=== PATIENT | female | born 1990 | race Caucasian/White ===

== ENCOUNTER 2021-06-05 00:07 | Emergency (ER) | payer OTHER ==
[2021-06-05 00:55] VITALS: BP 138/79
[2021-06-05] MEDS ORDERED: hydrOXYzine PAMOATE 25 MG CAPSULE PO STA (01:27)
--- NOTE | 2021-06-05 01:33 | ED Physician Documentation ---
History of Present Illness - Stated complaint Stated Complaint: MHE, PANICK ATTACK - Chief complaint Chief Complaint: MHE - History obtained from History obtained from: Patient, Family (mother) - Additonal information Additional information: 31yF with pmh anxiety, adhd, depression p/w acute episode of anxiety, tearfulness, intermittent over the past couple hours with intermittent "numbness". patient endorses smoking a new strain of indica marijuana around 11 or midnight. mother states the patient's sister came and woke her because she was anxious, tearful, making jerking movements and stuttering. also had rigid hands. mother endorses history of similar seizure-like activity in the patient's sister which was diagnosed as conversion disorder. patient denies tongue biting, urinary or fecal incontinence. does not think she passed out but is unsure. Review of Systems Ten Systems: 10 systems reviewed and negative Constitutional: denies: Fever, Chills Cardiac: denies: Chest pain / pressure Respiratory: denies: Dyspnea GI: denies: Nausea Neurologic: reports: Other (stuttering speech) Psychiatric: reports: Depressed, Anxiety, Insomnia. denies: Suicidal, Homicidal, Hallucinations PD PAST MEDICAL HISTORY - Present Medications Home Medications: Ambulatory Orders Medication Instructions Recorded Confirmed Mirtazapine 15 mg PO QPM 06/05/21 06/05/21 cloNIDine [Catapres] 0.2 mg PO QPM 06/05/21 06/05/21 hydrOXYzine pamoate [Hydroxyzine 25 mg PO Q8H PRN #15 tab 06/05/21 Pamoate] - Allergies Allergies/Adverse Reactions: Allergies Allergy/AdvReac Type Severity Reaction Status Date / Time No Known Drug Allergies Allergy Verified 06/05/21 00:39 PD ED PE NORMAL - Vitals Vital signs reviewed: Yes - General General: Alert and oriented X 3, No acute distress, Well developed/nourished - HEENT HEENT: Atraumatic, PERRL, EOMI - Neck Neck: Supple, no meningeal sign - Cardiac Cardiac: RRR - Respiratory Respiratory: No respiratory distress, Clear bilaterally - Abdomen Abdomen: Non tender, Non distended - Derm Derm: Normal color, Warm and dry - Extremities Extremities: No deformity - Neuro Neuro: Alert and oriented X 3, doctor of chiropractic 2-12 intact, No motor deficit, No sensory deficit, Other (stuttering, stammering speech. ) - Psych Psych: Other (flat affect. anxious mood) Results - Vitals Vitals: Vital Signs - 24 hr 06/05/21 06/05/21 00:35 00:55 Temperature 36.4 C L Heart Rate 108 H 109 H Respiratory 24 17 Rate Blood Pressure 149/111 H 138/79 H O2 Saturation 100 98 Oxygen O2 Source Room air PD MEDICAL DECISION MAKING - ED course ED course: 31yF presents with likely panic attack, possibly mediated by smoking new strain of marijuana tonight. patient denies si/hi/avh and has good psychiatry follow up. d/w mother who will make appointment tomorrow. brief hydroxyzine script provided in the interim. advised to avoid MJ and etoh and not to drive after taking hydroxyzine. return precautions given. Departure - Departure Disposition: Home, Self Care Clinical Impression: Anxiety, Marijuana use Condition: Good Instructions: ED Panic Attack Prescriptions: hydrOXYzine pamoate [Hydroxyzine Pamoate] 25 mg PO Q8H PRN #15 tab PRN Reason: Anxiety Comments: You were seen in the emergency department after an acute anxiety episode, likely a panic attack. This may be related to smoking marijuana, so you should avoid using that strain in future, and concisder avoiding marijuana altogether for now. You can take hydroxyzine as needed for anxiety. Please follow up with your psychiatrist Dr. Borrego. Return to the emergency department if you have any new or worsening symptoms or other concerns.
== END 2021-06-05 01:38 | disposition home or self-care (01) ==
LOC: ED 00:07
DX: F41.9 Anxiety disorder, unspecified (principal); F12.90 Cannabis use, unspecified, uncomplicated
CPT/HCPCS: 99282; 99284; A9270